=== PATIENT | female | born 1970 | race Caucasian/White ===

== ENCOUNTER → 2017-03-05 | Outpatient (REF) | payer OTHER ==
[2017-03-06 12:46] LABS: BASO % 0.4 % (0.0-1.0); EOS # 0.1 10^3/uL (0.0-0.50); EOS % 0.6 % (0.0-3.0); HEMATOCRIT 40.6 % (36.0-47.0); HEMOGLOBIN 13.6 g/dl (12.0-16.0); IMMATURE GRANULOCYTE % 0.2 % (0-0); LYMPH # 1.1 10^3/uL (1.5-4.5); LYMPH % 11.5 % (24.0-44.0); MEAN CORPUSCULAR HEMOGLOBIN 29.3 pg (27.0-33.0); MEAN CORPUSCULAR HGB CONC 33.5 g/dl (32.0-36.5); MEAN CORPUSCULAR VOLUME 87.5 fl (80.0-96.0); MONO # 0.8 10^3/uL (0.0-0.8); MONO % 8.1 % (0.0-5.0); NEUTROPHILS # 7.5 10^3/uL (1.8-7.7); NEUTROPHILS % 79.2 % (36.0-66.0); PLATELET COUNT, AUTOMATED 210 10^3/uL (150-450); RED BLOOD COUNT 4.64 10^6/uL (4.00-5.40); RED CELL DISTRIBUTION WIDTH 12.7 % (11.5-14.5); WHITE BLOOD COUNT 9.5 10^3/uL (4.0-10.0)
[2017-03-06 13:11] LABS: ALBUMIN 4.1 GM/DL (3.2-5.2); ALBUMIN/GLOBULIN RATIO 1.11 (1.00-1.93); ALKALINE PHOSPHATASE 100 U/L (45-117); ALT/SGPT 18 U/L (12-78); ANION GAP 8 MEQ/L (8-16); AST/SGOT 14 U/L (7-37); BILIRUBIN,TOTAL 0.3 MG/DL (0.2-1.0); BLOOD UREA NITROGEN 7 MG/DL (7-18); CALCIUM LEVEL 8.6 MG/DL (8.5-10.1); CARBON DIOXIDE LEVEL 27 MEQ/L (21-32); CHLORIDE LEVEL 104 MEQ/L (98-107); CREATININE FOR GFR 0.59 MG/DL (0.55-1.30); GLOMERULAR FILTRATION RATE > 60.0 (>58); GLUCOSE, FASTING 95 MG/DL (70-100); POTASSIUM SERUM 4.3 MEQ/L (3.5-5.1); SODIUM LEVEL 139 MEQ/L (136-145); TOTAL PROTEIN 7.8 GM/DL (6.4-8.2)
== END ==
LOC: M SFHCLERA 15:39
DX: R10.12 Left upper quadrant pain (principal)
CPT/HCPCS: 80053

== ENCOUNTER → 2017-03-05 | Outpatient (CLI) | payer OTHER | LOC: M LRY 15:48 | DX: R10.12 Left upper quadrant pain (principal) ==

== ENCOUNTER → 2017-10-19 | Outpatient (CLI) | payer BC ==
[2017-10-19 11:51] LABS: HEMOGLOBIN 12.7 g/dl (12.0-15.5); MEAN CORPUSCULAR HEMOGLOBIN 29.5 pg (27.0-33.0); MEAN CORPUSCULAR HGB CONC 33.4 g/dl (32.0-36.5); MEAN CORPUSCULAR VOLUME 88.2 fl (80.0-96.0); PLATELET COUNT, AUTOMATED 209 10^3/uL (150-450); RED BLOOD COUNT 4.31 10^6/uL (4.00-5.40); RED CELL DISTRIBUTION WIDTH 12.8 % (11.5-14.5); WHITE BLOOD COUNT 7.8 10^3/uL (4.0-10.0)
[2017-10-19 12:54] LABS: ALBUMIN 3.7 GM/DL (3.2-5.2); ALBUMIN/GLOBULIN RATIO 1.12 (1.00-1.93); ALKALINE PHOSPHATASE 107 U/L (45-117); ALT/SGPT 25 U/L (12-78); ANION GAP 9 MEQ/L (8-16); AST/SGOT 15 U/L (7-37); BILIRUBIN,TOTAL 0.3 MG/DL (0.2-1.0); BLOOD UREA NITROGEN 10 MG/DL (7-18); CALCIUM LEVEL 8.3 MG/DL (8.5-10.1); CARBON DIOXIDE LEVEL 24 MEQ/L (21-32); CHLORIDE LEVEL 106 MEQ/L (98-107); CHOLESTEROL LEVEL 167 MG/DL (<200); CREATININE FOR GFR 0.68 MG/DL (0.55-1.30); FREE T3 2.6 PG/ML (2.2-4.0); GLOMERULAR FILTRATION RATE > 60.0 (>58); GLUCOSE, FASTING 86 MG/DL (70-100); HDL CHOLESTEROL 50 MG/DL (>40); LDL CHOLESTEROL 93 MG/DL (<100); NON-HDL-C 117 MG/DL; POTASSIUM SERUM 4.3 MEQ/L (3.5-5.1); SODIUM LEVEL 139 MEQ/L (136-145); THYROID STIMULATING HORMONE 0.972 uIU/ML (0.358-3.740); TRIGLYCERIDES LEVEL 118 MG/DL (<150)
[2017-10-19 13:21] LABS: TESTOSTERONE 17 NG/DL (14-76); THYROID PEROXIDASE ANTIBODY 41.8 U/ML (<60.0); TOTAL 25(OH) VITAMIN D 28.6 NG/ML (30.0-100.0)
[2017-10-19 13:22] LABS: ESTRADIOL 72.8 PG/ML
[2017-10-19 13:23] LABS: FOLLICLE STIMULATING HORMONE 4.8 mIU/mL
== END ==
LOC: M LRY 09:56
DX: N95.1 Menopausal and female climacteric states (principal); R53.82 Chronic fatigue, unspecified; E55.9 Vitamin D deficiency, unspecified; E78.5 Hyperlipidemia, unspecified
CPT/HCPCS: 83001

== ENCOUNTER → 2017-11-30 | Outpatient (CLI) | payer BC ==
[2017-11-30 16:07] LABS: CHOLESTEROL LEVEL 174 MG/DL (<200); CHOLESTEROL RISK RATIO 4.243 (<5); ESTRADIOL 124.6 PG/ML; FOLLICLE STIMULATING HORMONE 10.3 mIU/mL; HDL CHOLESTEROL 41 MG/DL (>40); LDL CHOLESTEROL 94 MG/DL (<100); NON-HDL-C 133 MG/DL; TESTOSTERONE 251 NG/DL (14-76); TRIGLYCERIDES LEVEL 195 MG/DL (<150)
== END ==
LOC: M LRY 08:58
DX: N95.1 Menopausal and female climacteric states (principal); R53.82 Chronic fatigue, unspecified; E55.9 Vitamin D deficiency, unspecified; E78.5 Hyperlipidemia, unspecified
CPT/HCPCS: 83001

== ENCOUNTER → 2018-01-23 | Outpatient (CLI) | payer BC ==
[2018-01-23 11:49] LABS: HEMATOCRIT 41.5 % (36.0-47.0); HEMOGLOBIN 13.4 g/dl (12.0-15.5); MEAN CORPUSCULAR HEMOGLOBIN 28.2 pg (27.0-33.0); MEAN CORPUSCULAR HGB CONC 32.3 g/dl (32.0-36.5); MEAN CORPUSCULAR VOLUME 87.4 fl (80.0-96.0); PLATELET COUNT, AUTOMATED 221 10^3/uL (150-450); RED BLOOD COUNT 4.75 10^6/uL (4.00-5.40); WHITE BLOOD COUNT 8.8 10^3/uL (4.0-10.0)
[2018-01-23 12:35] LABS: ALBUMIN 3.6 GM/DL (3.2-5.2); ALT/SGPT 32 U/L (12-78); BILIRUBIN,TOTAL 0.2 MG/DL (0.2-1.0); BLOOD UREA NITROGEN 12 MG/DL (7-18); CALCIUM LEVEL 8.3 MG/DL (8.5-10.1); CARBON DIOXIDE LEVEL 28 MEQ/L (21-32); CHLORIDE LEVEL 104 MEQ/L (98-107); CHOLESTEROL LEVEL 176 MG/DL (<200); CREATININE FOR GFR 0.76 MG/DL (0.55-1.30); FOLLICLE STIMULATING HORMONE 5.6 mIU/mL; FREE T3 2.6 PG/ML (2.2-4.0); GLOMERULAR FILTRATION RATE > 60.0 (>58); GLUCOSE, FASTING 111 MG/DL (70-100); HDL CHOLESTEROL 42 MG/DL (>40); LDL CHOLESTEROL 114 MG/DL (<100); NON-HDL-C 134 MG/DL; POTASSIUM SERUM 4.7 MEQ/L (3.5-5.1); SODIUM LEVEL 138 MEQ/L (136-145); TESTOSTERONE 146 NG/DL (14-76); THYROID PEROXIDASE ANTIBODY 41.8 U/ML (<60.0); THYROID STIMULATING HORMONE 0.406 uIU/ML (0.358-3.740); THYROXINE (T4) 3.9 UG/DL (4.5-12.0); TOTAL 25(OH) VITAMIN D 25.2 NG/ML (30.0-100.0); TOTAL PROTEIN 7.2 GM/DL (6.4-8.2); TRIGLYCERIDES LEVEL 99 MG/DL (<150); VITAMIN B12 LEVEL 439 PG/ML (247-911)
== END ==
LOC: M WUC 09:08
PROVIDERS: ATTEND Nurse Practitioner
DX: N95.1 Menopausal and female climacteric states (principal); R53.82 Chronic fatigue, unspecified; E55.9 Vitamin D deficiency, unspecified; E78.5 Hyperlipidemia, unspecified

== ENCOUNTER → 2018-01-30 | Outpatient (REF) | payer BC | LOC: M SFHCLERA 20:19 | PROVIDERS: ATTEND Nurse Practitioner Family | DX: R39.89 Other symptoms and signs involving the genitourinary system (principal) ==

== ENCOUNTER → 2018-02-19 | Outpatient (REF) | payer BC | LOC: M SFHCPLAZ 15:46 | PROVIDERS: ATTEND Physician Assistant | DX: J02.9 Acute pharyngitis, unspecified (principal) ==

== ENCOUNTER → 2018-04-06 | Outpatient (CLI) | payer BC ==
[2018-04-06 18:12] LABS: CHOLESTEROL RISK RATIO 5.142 (<5)
[2018-04-08 10:51] LABS: ESTRADIOL 55.2 PG/ML
[2018-04-09 10:15] LABS: TESTOSTERONE FREE (DIRECT) 2.1 pg/mL (0.0-4.2)
== END ==
LOC: M WUC 11:12
PROVIDERS: ATTEND Nurse Practitioner
DX: E78.5 Hyperlipidemia, unspecified (principal); E55.9 Vitamin D deficiency, unspecified; R53.82 Chronic fatigue, unspecified; N95.1 Menopausal and female climacteric states

== ENCOUNTER → 2018-07-22 | Outpatient (CLI) | payer OTHER ==
[2018-07-22 16:54] LABS: ESTRADIOL 43.4 PG/ML; FOLLICLE STIMULATING HORMONE 38.5 mIU/mL
== END ==
LOC: M WUC 10:55
PROVIDERS: ATTEND Nurse Practitioner
DX: N95.1 Menopausal and female climacteric states (principal); R53.82 Chronic fatigue, unspecified; E55.9 Vitamin D deficiency, unspecified; E78.5 Hyperlipidemia, unspecified

== ENCOUNTER → 2018-09-17 | Outpatient (CLI) | payer OTHER ==
[2018-09-17 13:25] LABS: HEMATOCRIT 41.3 % (36.0-47.0); HEMOGLOBIN 13.3 g/dl (12.0-15.5); MEAN CORPUSCULAR HEMOGLOBIN 28.4 pg (27.0-33.0); MEAN CORPUSCULAR HGB CONC 32.2 g/dl (32.0-36.5); MEAN CORPUSCULAR VOLUME 88.2 fl (80.0-96.0); PLATELET COUNT, AUTOMATED 230 10^3/uL (150-450); RED BLOOD COUNT 4.68 10^6/uL (4.00-5.40); WHITE BLOOD COUNT 6.6 10^3/uL (4.0-10.0)
[2018-09-17 13:44] LABS: ALBUMIN 3.7 GM/DL (3.2-5.2); ALT/SGPT 73 U/L (12-78); BILIRUBIN,TOTAL 0.4 MG/DL (0.2-1.0); BLOOD UREA NITROGEN 13 MG/DL (7-18); CALCIUM LEVEL 8.7 MG/DL (8.5-10.1); CARBON DIOXIDE LEVEL 29 MEQ/L (21-32); CHLORIDE LEVEL 104 MEQ/L (98-107); CHOLESTEROL LEVEL 187 MG/DL (<200); CREATININE FOR GFR 0.83 MG/DL (0.55-1.30); ESTRADIOL 96.8 PG/ML; FOLLICLE STIMULATING HORMONE 6.7 mIU/mL; FREE T3 3.6 PG/ML (2.2-4.0); GLOMERULAR FILTRATION RATE > 60.0 (>58); GLUCOSE, FASTING 109 MG/DL (70-100); HDL CHOLESTEROL 41 MG/DL (>40); LDL CHOLESTEROL 109 MG/DL (<100); NON-HDL-C 146 MG/DL; POTASSIUM SERUM 4.7 MEQ/L (3.5-5.1); SODIUM LEVEL 140 MEQ/L (136-145); TESTOSTERONE 83 NG/DL (14-76); THYROXINE (T4) 4.9 UG/DL (4.5-12.0); TOTAL 25(OH) VITAMIN D 22.1 NG/ML (30.0-100.0); TOTAL PROTEIN 7.4 GM/DL (6.4-8.2); TRIGLYCERIDES LEVEL 183 MG/DL (<150); VITAMIN B12 LEVEL 443 PG/ML (247-911)
[2018-09-18 09:58] LABS: THYROID PEROXIDASE ANTIBODY 36.1 U/ML (<60.0)
== END ==
LOC: M WUC 09:11
PROVIDERS: ATTEND Nurse Practitioner
DX: N95.1 Menopausal and female climacteric states (principal); R53.82 Chronic fatigue, unspecified; E55.9 Vitamin D deficiency, unspecified; E78.5 Hyperlipidemia, unspecified

== ENCOUNTER → 2020-03-01 | Outpatient (CLI) | payer SELFPAY | LOC: M LABSMTC 11:28 | PROVIDERS: ATTEND Pediatrics | DX: Z20.822 Contact with and (suspected) exposure to COVID-19 (principal) ==

== ENCOUNTER → 2020-06-19 | Outpatient (CLI) | payer SELFPAY | LOC: M LABSMTC 10:14 | PROVIDERS: ATTEND Pediatrics | DX: Z11.52 Encounter for screening for COVID-19 (principal) ==

== ENCOUNTER 2020-10-01 18:02 | Emergency (ER) | payer SELFPAY ==
[~2020-10-01] VITALS: Ht 157.5 cm; Wt 73.3 kg
[2020-10-01 18:04] VITALS: BP 164/92
[2020-10-01 19:06] LABS: APPEARANCE, URINE MANUAL CLOUDY (CLEAR)
[2020-10-01 19:22] LABS: BILIRUBIN, URINE MANUAL OBSCURED (NEGATIVE); BLOOD URINE MANUAL OBSCURED (NEGATIVE); GLUCOSE, URINE (UA) MANUAL OBSCURED mg/dL (NEGATIVE); KETONE, URINE MANUAL OBSCURED mg/dL (NEGATIVE); LEUKOCYTE ESTERASE, URINE MAN OBSCURED (NEGATIVE); NITRITE, URINE MANUAL OBSCURED (NEGATIVE); PH,URINE MAN OBSCURED UNITS (5.0 - 7.0); PROTEIN, URINE MANUAL OBSCURED mg/dL (NEGATIVE); SPECIFIC GRAVITY,URINE MANUAL 1.014 (1.002-1.035); UROBILINOGEN, URINE MANUAL OBSCURED mg/dl (NORMAL)
[2020-10-01 19:24] LABS: BACTERIA, URINE LARGE AMOUNT; COLOR, URINE MANUAL ORANGE (YELLOW); HYALINE CAST, URINE NONE SEEN /lpf (0-1); MUCUS, URINE LARGE AMOUNT (NEGATIVE); RBC, URINE 40-50 /hpf (0-3); SQUAMOUS EPITHELIAL CELL URINE SMALL AMOUNT /hpf (SMALL AMT); TRANSITIONAL EPI CELLS, URINE SMALL AMOUNT /hpf; WBC, URINE TNTC /hpf (0-3)
--- NOTE | 2020-10-01 21:40 | REPVR ---
PROCEDURE INFORMATION: Exam: CT Abdomen And Pelvis Without Contrast Exam date and time: 10/01/2020 8:36 PM Age: 50 years old Clinical indication: Abdominal pain; Flank; Left; Additional info: Left flank pain TECHNIQUE: Imaging protocol: Computed tomography of the abdomen and pelvis without contrast. Radiation optimization: All CT scans at this facility use at least one of these dose optimization techniques: automated exposure control; mA and/or kV adjustment per patient size (includes targeted exams where dose is matched to clinical indication); or iterative reconstruction. COMPARISON: CR ABDOMEN FLAT/UPRIGHT, PA CHEST 03/05/2017 3:56 PM FINDINGS: Lungs: Clear appearing lung bases. Heart: Normal-sized heart. Liver: Normal liver. Gallbladder and bile ducts: Normal gallbladder. Normal common bile duct. Pancreas: Normal pancreas. Spleen: Normal spleen. Adrenal glands: Normal adrenal glands. Kidneys and ureters: There is mild enlargement of the left kidney. There is mild enlargement of the left renal pelvis and hazy increased density following the left ureter and along the anterior surface of the left psoas muscle. This is suspicious for changes of ureteritis. This could also be secondary to recent passage of a stone as well. Stomach and bowel: The cecum is in the right pelvis and there is no evidence of inflammation in the region of the cecum or in the region of the appendix. Intraperitoneal space: There is no evidence of free fluid in the abdomen or pelvis. Vasculature: The aorta is normal in size. Lymph nodes: Unremarkable. No enlarged lymph nodes. Urinary bladder: There is only a small amount of urine in the urinary bladder. Reproductive: Patient is post hysterectomy. There is a 2.4 cm cyst of the left ovary and I would recommend a follow-up CT or ultrasound to ensure that this is stable and this could be done after approximately 4 months. Bones/joints: There is no evidence of bony abnormality. Soft tissues: Normal appearing soft tissues. IMPRESSION: 1. Mild enlargement of the left kidney and hazy margins may be the result of pyelonephritis. 2. There is mild dilatation left renal pelvis and hazy increased density following the left ureter along the anterior aspect of the left psoas muscle and suspicious for changes of ureteritis. This could also be the result of recent passage of a stone. It would be helpful to have a CT scan with IV contrast and delayed images to evaluate the left collecting system and exclude any possibility of partial obstruction. 3. 2.4 cm cyst of the left ovary and suggest follow-up CT scan in 3-4 months to document stability of this. Electronically signed by: Luis Antonio Matias On 10/01/2020 21:40:22 PM
--- NOTE | 2020-10-06 12:02 | ED PDOC ---
Post-Departure Follow-Up radiology report faxed to ирина Mcclellan Sarah MD Oct 06, 2020 12:02
== END 2020-10-02 02:09 | disposition left against medical advice (07) ==
LOC: M ED 18:02
DX: Z53.21 Procedure and treatment not carried out due to patient leaving prior to being seen by health care provider (principal)